=== PATIENT | female | born 1970 | race Caucasian/White ===

== ENCOUNTER → 2018-09-02 | Outpatient (CLI) | payer BC | LOC: GMAE 14:37 | PROVIDERS: ATTEND Family Medicine | DX: Z00.01 Encounter for general adult medical examination with abnormal findings (principal) ==

== ENCOUNTER → 2019-01-13 | Outpatient (CLI) | payer BC | LOC: GMAE 10:48 | PROVIDERS: ATTEND Family Medicine | DX: E03.9 Hypothyroidism, unspecified (principal); E11.9 Type 2 diabetes mellitus without complications; I10 Essential (primary) hypertension; E78.2 Mixed hyperlipidemia ==

== ENCOUNTER → 2019-05-26 | Outpatient (CLI) | payer BC | LOC: GMAE 11:16 | PROVIDERS: ATTEND Family Medicine | DX: E03.9 Hypothyroidism, unspecified (principal); E11.9 Type 2 diabetes mellitus without complications; I10 Essential (primary) hypertension; E78.2 Mixed hyperlipidemia ==

== ENCOUNTER → 2019-11-08 | Outpatient (CLI) | payer BC | LOC: GMAE 10:23 | PROVIDERS: ATTEND Family Medicine | DX: Z00.00 Encounter for general adult medical examination without abnormal findings (principal) ==

== ENCOUNTER → 2019-11-18 | Outpatient (CLI) | payer BC ==
--- NOTE | 2019-11-20 14:10 | MRI ---
EXAM DESCRIPTION: Cervical Spine: MRI. CLINICAL HISTORY: 49 years Female RADICULOPATHY CERVICAL REGION COMPARISON: Cervical TECHNIQUE: Multiplanar, high-field MRI, multiple sequences, non-contrast Cervical spine. FINDINGS: C3-4: Disc desiccation with disc space maintained. Tiny posterior bulge. Bilateral small uncinate spurs. Minimal bilateral neural foraminal narrowing. Facet joints are negative. Canal patent. C4-5: Small left uncinate spur. Minimal disc space loss and disc desiccation. Minimal left neural foraminal narrowing. Facet joints negative. Canal patent. C5-6: Disc desiccation and posterior broad-based bulge more to the right of midline impressing on the right ventral cord. Bilateral uncinate spurs more larger than left. Bilateral facets unremarkable. Right neural foraminal stenosis and borderline left neural foraminal stenosis. Left paracentral mild canal stenosis. C6-C7: Posterior midline bulge impressing on the ventral cord with hyperintense T2 annular fissure. Minimal bulge into the bilateral foramina which are mildly narrowed. Borderline left paracentral canal stenosis. Normal signal in the C2-C3 disc, C7-T1 disc, and T1-T2 disc with no bulging. Disc spaces preserved. Canal and neural foramina are patent. Facet joints unremarkable. Spinal alignment anatomic. No cord compression or cord edema. Atlantoaxial joint negative.. Base of the cerebellar tonsils is slightly above the foramen magnum. Paravertebral soft tissues unremarkable. Vertebral bodies are not compressed at any level. Otherwise normal marrow signal in the remaining vertebral bodies and the posterior elements. IMPRESSION: 1. Multiple levels of uncinate spur hypertrophy disc desiccation and bulging. 2. Bilateral uncinate spurs at C5-C6 with disc bulging resulting in right neural foraminal stenosis and borderline left neural foraminal stenosis. Correlate for left C6 radiculopathy. Left paracentral mild canal stenosis. 3. Disc osteophyte bulge posteriorly midline at C6-C7 with borderline left paracentral canal stenosis. Foramina are patent. Electronically signed by: Lorenzo Barnes MD 11/20/2019 2:09 PM [facility]
== END ==
LOC: MRI 14:00
PROVIDERS: ATTEND Family Medicine
DX: M54.12 Radiculopathy, cervical region (principal); M50.31 Other cervical disc degeneration, high cervical region; M50.321 Other cervical disc degeneration at C4-C5 level; M50.322 Other cervical disc degeneration at C5-C6 level; M50.323 Other cervical disc degeneration at C6-C7 level; M50.91 Cervical disc disorder, unspecified, high cervical region; M50.922 Unspecified cervical disc disorder at C5-C6 level; M50.923 Unspecified cervical disc disorder at C6-C7 level; M48.02 Spinal stenosis, cervical region; M25.78 Osteophyte, vertebrae

== ENCOUNTER → 2020-05-15 | Outpatient (CLI) | payer BC | LOC: GMAE 10:54 | PROVIDERS: ATTEND Family Medicine | DX: E03.9 Hypothyroidism, unspecified (principal); E11.9 Type 2 diabetes mellitus without complications; E55.9 Vitamin D deficiency, unspecified; E78.2 Mixed hyperlipidemia ==